=== PATIENT | female | born 1960 | race Caucasian/White ===

== ENCOUNTER 2024-12-26 12:09 | Emergency (ER) | payer MEDICARE | END 2024-12-26 13:08 | disposition home or self-care (01) | LOC: FB.ED 12:09 | DX: M79.605 Pain in left leg (principal); I10 Essential (primary) hypertension; Z90.49 Acquired absence of other specified parts of digestive tract; Z88.5 Allergy status to narcotic agent; Z88.8 Allergy status to other drugs, medicaments and biological substances; Z79.01 Long term (current) use of anticoagulants | CPT/HCPCS: 36415; 85379; 99283 ==